=== PATIENT | male | born 1990 | race Two or more races ===

== ENCOUNTER 2020-07-15 08:27 | Emergency (ER) | payer MEDICAID, OTHER ==
[~2020-07-15] VITALS: Ht 170.2 cm; Wt 104.3 kg
[2020-07-15 08:46] VITALS: BP 135/83
[2020-07-15 09:49] LABS: Urine Bacteria NONE SEEN /hpf (None Seen); Urine Blood TRACE /uL (Negative); Urine Mucus FEW (None Seen); Urine Specific Gravity 1.025 (1.001-1.035); Urine WBC 1 /hpf (0 - 3)
== END 2020-07-15 11:28 | disposition home or self-care (01) ==
LOC: ER 08:27 → EDSEX 08:27 → ER 11:00
DX: J06.9 Acute upper respiratory infection, unspecified (principal)
CPT/HCPCS: 71045; 81001

== ENCOUNTER 2020-07-18 18:55 | Emergency (ER) | payer MEDICAID ==
[~2020-07-18] VITALS: Ht 170.2 cm; Wt 104.3 kg
[2020-07-18 19:21] VITALS: BP 147/63
== END 2020-07-18 19:46 | disposition home or self-care (01) ==
LOC: ER 18:55
DX: U07.1 COVID-19 (principal)